=== PATIENT | female | born 1980 | race Caucasian/White ===

== ENCOUNTER 2023-01-11 00:50 | Emergency (ER) | payer MEDICAID ==
[2023-01-11 01:18] VITALS: BP 118/69; PULSE 84
== END 2023-01-11 01:45 | disposition home or self-care (01) ==
LOC: VM.ED 00:50
DX: S90.31XA Contusion of right foot, initial encounter (principal); E10.22 Type 1 diabetes mellitus with diabetic chronic kidney disease; N18.9 Chronic kidney disease, unspecified; Z88.6 Allergy status to analgesic agent; Z91.013 Allergy to seafood; Z91.040 Latex allergy status; W01.0XXA Fall on same level from slipping, tripping and stumbling without subsequent striking against object, initial encounter; W18.40XA Slipping, tripping and stumbling without falling, unspecified, initial encounter
CPT/HCPCS: 73610-RT; 73630-RT; 99283

== ENCOUNTER 2023-03-25 12:49 | Emergency (ER) | payer MEDICAID ==
[2023-03-25] MEDS ORDERED: Acetaminophen 325 MG Tab PO ONE (12:59)
[2023-03-25 13:24] LABS: EOSINOPHILS PERCENT AUTO 0.2 % (0.0-4.0); HEMATOCRIT 33.5 % (33.0-47.0); HEMOGLOBIN 11.7 g/dL (12.0-16.0); IMMATURE GRAN ABSOLUTE AUTO 0.01 x10^3/uL (0.00-0.07); LYMPHOCYTES ABSOLUTE AUTO 0.3 x10^3/uL (1.0-4.8); LYMPHOCYTES PERCENT AUTO 6.2 % (25.0-50.0); MEAN CORPUSCULAR HEMOGLOBIN 31.3 pg (26.0-32.0); MEAN CORPUSCULAR HGB CONC 34.9 g/dL (32.0-36.0); MEAN CORPUSCULAR VOLUME 89.6 fL (78.0-93.0); MONOCYTES ABSOLUTE AUTO 0.5 x10^3/uL (0.0-0.8); MONOCYTES PERCENT AUTO 10.2 % (2.0-11.0); NEUTROPHILS ABSOLUTE AUTO 3.8 x10^3/uL (1.8-7.7); PLATELET COUNT,PLT 150 x10^3/uL (130-400); RED BLOOD CELL COUNT 3.74 x10^6/uL (4.00-5.50); WHITE BLOOD CELL COUNT,WBC 4.5 x10^3/uL (4.0-10.0)
[2023-03-25 13:28] LABS: NEUTROPHILS PERCENT AUTO 83.2 % (50.0-80.0)
[2023-03-25 13:43] LABS: A/G RATIO 1.38; ALANINE AMINOTRANSFERASE,ALT 17 U/L (14-59); ALBUMIN 3.6 g/dL (3.4-5.0); ALKALINE PHOSPHATASE 83 U/L (46-116); BILIRUBIN TOTAL 0.4 mg/dL (0.2-1.0); BLOOD UREA NITROGEN,BUN 10 mg/dL (7-18); CALCIUM 8.5 mg/dL (8.5-10.1); CARBON DIOXIDE,CO2 27 mmol/L (21-32); CHLORIDE,CL 104 mmol/L (98-107); CREATININE 0.8 mg/dL (0.55-1.02); GLUCOSE RANDOM 97 mg/dL (70-99); POTASSIUM,K 3.7 mmol/L (3.5-5.1); PROTEIN TOTAL,TP 6.2 g/dL (6.4-8.2); SODIUM,NA 142 mmol/L (136-145)
[2023-03-25 13:44] LABS: ANION GAP 14.7 mmol/L (5-15); ESTIMATED GFR 93 mL/min (>=60)
[2023-03-25 13:52] LABS: ASPARTATE AMNIOTRANSFERASE,AST 10 U/L (15-37)
[2023-03-25 14:16] VITALS: PULSE 74
[2023-03-25 14:24] VITALS: BP 95/53
== END 2023-03-25 13:59 | disposition home or self-care (01) ==
LOC: VM.ED 12:49
DX: U07.1 COVID-19 (principal); E10.22 Type 1 diabetes mellitus with diabetic chronic kidney disease; N18.9 Chronic kidney disease, unspecified; E78.00 Pure hypercholesterolemia, unspecified; Z88.5 Allergy status to narcotic agent; Z91.040 Latex allergy status; Z91.013 Allergy to seafood
CPT/HCPCS: 36415; 80053; 85025; 99284; A9270

== ENCOUNTER 2023-03-30 16:36 | Emergency (ER) | payer MEDICAID ==
[2023-03-30] MEDS ORDERED: Diphtheria,Pertussis(Acell),Tetanus Vaccine 0.5 ML Syringe IM ONE (16:47)
[2023-03-30] MEDS ORDERED: Take Home: Amoxicillin 875 MG Tab, 2 Tab Pack PO ONE (16:51)
[2023-03-30] MEDS ORDERED: Take Home: Amoxicillin/Clavulanate K 875-125 MG Tab, 2 Tab Pack PO ONE (16:53)
[2023-03-30 18:18] VITALS: BP 111/82; PULSE 62
== END 2023-03-30 17:40 | disposition home or self-care (01) ==
LOC: VM.ED 16:36
DX: S61.250A Open bite of right index finger without damage to nail, initial encounter (principal); E10.22 Type 1 diabetes mellitus with diabetic chronic kidney disease; N18.9 Chronic kidney disease, unspecified; Z86.16 Personal history of COVID-19; Z88.8 Allergy status to other drugs, medicaments and biological substances; Z88.5 Allergy status to narcotic agent; Z91.013 Allergy to seafood; Z91.040 Latex allergy status; W53.81XA Bitten by other rodent, initial encounter
CPT/HCPCS: 99283; A9270-GY

== ENCOUNTER 2023-10-10 15:05 | Emergency (ER) | payer MEDICAID ==
[2023-10-10 16:39] VITALS: BP 109/71; PULSE 80
== END 2023-10-10 15:45 | disposition home or self-care (01) ==
LOC: VM.ED 15:05
DX: L03.032 Cellulitis of left toe (principal); E10.22 Type 1 diabetes mellitus with diabetic chronic kidney disease; N18.9 Chronic kidney disease, unspecified; Z86.73 Personal history of transient ischemic attack (TIA), and cerebral infarction without residual deficits; Z90.49 Acquired absence of other specified parts of digestive tract; Z88.6 Allergy status to analgesic agent; Z91.013 Allergy to seafood; Z91.040 Latex allergy status; Z88.5 Allergy status to narcotic agent; Z79.899 Other long term (current) drug therapy; Z90.710 Acquired absence of both cervix and uterus
CPT/HCPCS: 99282; 99283

== ENCOUNTER 2024-02-19 19:39 | Emergency (ER) | payer MEDICAID ==
[2024-02-19] MEDS ORDERED: Sodium Chloride 0.9% 10 ML Syringe FLUSH PRN (20:32)
[2024-02-19 20:39] VITALS: BP 108/76; PULSE 81
[2024-02-19 21:01] LABS: EOSINOPHILS ABSOLUTE AUTO 0.1 x10^3/uL (0.0-0.5); EOSINOPHILS PERCENT AUTO 0.9 % (0.0-4.0); HEMATOCRIT 40.2 % (33.0-47.0); HEMOGLOBIN 14.1 g/dL (12.0-16.0); IMMATURE GRAN ABSOLUTE AUTO 0.01 x10^3/uL (0.00-0.07); LYMPHOCYTES ABSOLUTE AUTO 2.8 x10^3/uL (1.0-4.8); LYMPHOCYTES PERCENT AUTO 43.6 % (25.0-50.0); MEAN CORPUSCULAR HGB CONC 35.1 g/dL (32.0-36.0); MEAN CORPUSCULAR VOLUME 88.4 fL (78.0-93.0); MONOCYTES ABSOLUTE AUTO 0.4 x10^3/uL (0.0-0.8); MONOCYTES PERCENT AUTO 6.9 % (2.0-11.0); NEUTROPHILS ABSOLUTE AUTO 3.1 x10^3/uL (1.8-7.7); NEUTROPHILS PERCENT AUTO 48.4 % (50.0-80.0); PLATELET COUNT,PLT 233 x10^3/uL (130-400); RED BLOOD CELL COUNT 4.55 x10^6/uL (4.00-5.50); WHITE BLOOD CELL COUNT,WBC 6.4 x10^3/uL (4.0-10.0)
[2024-02-19 21:17] LABS: CREATININE 0.9 mg/dL (0.55-1.02); EST CRCL DRUG DOSING (CG) 85.36 mL/min; ESTIMATED GFR 80 mL/min (>=60)
[2024-02-19 21:21] LABS: BLOOD UREA NITROGEN,BUN 8 mg/dL (7-18); CALCIUM 9.3 mg/dL (8.5-10.1); CARBON DIOXIDE,CO2 28 mmol/L (21-32); CHLORIDE,CL 107 mmol/L (98-107); GLUCOSE RANDOM 105 mg/dL (70-99); POTASSIUM,K 3.7 mmol/L (3.5-5.1); SODIUM,NA 145 mmol/L (136-145)
[2024-02-19 21:22] LABS: ANION GAP 13.7 mmol/L (5-15); C-REACTIVE PROTEIN < 0.50 mg/dL (<=0.50)
[2024-02-19] MEDS: Iopamidol 612 MG/ML 100 ML Bottle IVPUSH ONE (22:25)
[2024-02-19] MEDS: Bupivacaine 0.5% 30 ML SDV INJECT PRN (23:03)
[2024-02-19] MEDS: Take Home: Amoxicillin 875 MG Tab, 2 Tab Pack PO ONE (23:10)
== END 2024-02-19 23:20 ==
LOC: VM.ED 19:39
DX: K04.7 Periapical abscess without sinus (principal); E10.9 Type 1 diabetes mellitus without complications; Z86.16 Personal history of COVID-19; Z90.49 Acquired absence of other specified parts of digestive tract; Z90.710 Acquired absence of both cervix and uterus; Z88.5 Allergy status to narcotic agent; Z88.6 Allergy status to analgesic agent; Z91.040 Latex allergy status; Z91.013 Allergy to seafood
CPT/HCPCS: 64400; 70491; 71046; 80048; 83880; 84484; 85025; 86140; 99284; 99285-25; A9270-GY; J0665; Q9967

== ENCOUNTER 2024-02-25 22:32 | Emergency (ER) | payer MEDICAID ==
[2024-02-25] MEDS: cefTRIAXone 1 GM, Lidocaine 1% 2.1 ML IM ONE (23:15)
[2024-02-25] MEDS: Ketorolac 30 MG/ML SDV IM ONE (23:16)
[2024-02-26 00:48] VITALS: BP 130/78; PULSE 77
== END 2024-02-25 23:50 | disposition home or self-care (01) ==
LOC: VM.ED 22:32
DX: K08.409 Partial loss of teeth, unspecified cause, unspecified class (principal); K02.9 Dental caries, unspecified; N18.9 Chronic kidney disease, unspecified; E10.22 Type 1 diabetes mellitus with diabetic chronic kidney disease; Z90.49 Acquired absence of other specified parts of digestive tract; Z90.710 Acquired absence of both cervix and uterus; Z88.6 Allergy status to analgesic agent; Z88.5 Allergy status to narcotic agent; Z91.013 Allergy to seafood; Z91.040 Latex allergy status
CPT/HCPCS: 96372; 99282; J0696; J1885; J3490

== ENCOUNTER 2025-01-04 21:21 | Emergency (ER) | payer MEDICAID ==
[2025-01-04] MEDS: Ondansetron 4 MG Tab.DIS PO ONE (21:44)
[2025-01-04 21:50] VITALS: BP 108/81; PULSE 75
[2025-01-04] MEDS: Ondansetron 4 MG/2 ML SDV IM ONE (22:04)
== END 2025-01-04 22:20 | disposition home or self-care (01) ==
LOC: VM.ED 21:21
DX: S06.0X1A Concussion with loss of consciousness of 30 minutes or less, initial encounter (principal); S00.03XA Contusion of scalp, initial encounter; E78.00 Pure hypercholesterolemia, unspecified; N18.9 Chronic kidney disease, unspecified; E10.22 Type 1 diabetes mellitus with diabetic chronic kidney disease; Z86.73 Personal history of transient ischemic attack (TIA), and cerebral infarction without residual deficits; Z88.6 Allergy status to analgesic agent; Z91.013 Allergy to seafood; Z88.5 Allergy status to narcotic agent; Z91.040 Latex allergy status; Z79.899 Other long term (current) drug therapy; W22.8XXA Striking against or struck by other objects, initial encounter; Y93.89 Activity, other specified
CPT/HCPCS: 96372; 99283; A9270-GY; J2405